=== PATIENT | female | born 1960 | race Native Hawaiian/Other Pacific Islander ===

== ENCOUNTER → 2018-11-13 13:32 | Outpatient (CLI) | payer OTHER, SELFPAY ==
--- NOTE | 2018-11-13 13:38 | DI.CT.S_ITS ---
PROCEDURE: CT ABDOMEN PELVIS W CON INDICATIONS: L LOWER QUADRANT PAIN TECHNIQUE: After the administration of oral and intravenous contrast, 5 mm thick sections acquired from the diaphragms to the symphysis. 5 mm thick coronal and sagittal reformats were performed. For radiation dose reduction, the following was used: automated exposure control, adjustment of mA and/or kV according to patient size. COMPARISON: None. FINDINGS: Image quality: Excellent. ABDOMEN: Lung bases: Lung bases are clear. Heart size is normal. Solid organs: Liver is normal in size and enhancement. Gallbladder is within normal limits. Biliary system is non-dilated. Pancreas enhances normally. Spleen is normal in size and enhancement. No adrenal nodules. Kidneys are normal in size and enhancement, without hydronephrosis. Left lower pole renal cyst is seen. Peritoneum and bowel: Small hiatal hernia is seen. There is no evidence of bowel obstruction. Significant circumferential wall thickening involving gastric pylorus and proximal first and second portion of duodenum is noted suggestive of gastroenteritis. Circumferential mass cannot be entirely excluded. GI correlation and followup is recommended. No other small bowel or colon wall thickening. No free fluid or free air. Nodes and vessels: No retroperitoneal or mesenteric adenopathy. Aorta and inferior vena cava are normal in caliber. Miscellaneous: No ventral hernias. PELVIS: Genitourinary: Bladder wall thickness is normal. Miscellaneous: No inguinal hernias or adenopathy. Bones: No suspicious bony lesions. No vertebral body compression fractures. IMPRESSION: 1. Circumferential wall thickening involving gastric pylorus and proximal duodenum suggestive of gastroduodenitis. Underlying circumferential gastric wall mass cannot be entirely excluded, GI correlation and followup is recommended. No bowel obstruction. No free fluid or free air. No CT evidence of acute appendicitis or diverticulitis. 2. No renal stone or hydronephrosis. Dictated by: Franco Tolentino M.D. on 11/13/2018 at 14:50 Approved by: Franco Tolentino M.D. on 11/13/2018 at 14:57
[2018-11-13 14:12] LABS: BUN Creatinine Ratio 15.7 (6-22); Blood Urea Nitrogen 11 mg/dL (7-17); Estimated Glomerular Filt Rate > 60.0 mL/min (>60)
== END ==
PROVIDERS: Family Provider Internal Medicine; PCP Internal Medicine; Visit Provider Internal Medicine
DX: Z01.818 Encounter for other preprocedural examination (principal); R10.32 Left lower quadrant pain
CPT/HCPCS: 36415; 74177; 82565; 84520; Q9967

== ENCOUNTER → 2019-03-30 14:05 | Oncology outpatient (ONC) | payer OTHER, SELFPAY ==
[2019-03-30 14:28] VITALS: BP 119/75; PULSE 76; RESP 16; TEMP 36.7
[2019-03-30 14:30] LABS: BUN Creatinine Ratio 18.6 (6-22); Blood Urea Nitrogen 13 mg/dL (7-17); Calcium 9.4 mg/dL (8.4-10.2); Carbon Dioxide 27 mmol/L (22-32); Chloride 105 mmol/L (98-107); Cholesterol 215 mg/dL (140-199); Estimated Glomerular Filt Rate > 60.0 mL/min (>60); Glucose 100 mg/dL (80-110); HDL Cholesterol 81 mg/dL (40-60); HEMOLYSIS < 15 (0-50); LDL Cholesterol Calculated 119 mg/dL (<100); Sodium 141 mmol/L (137-145); Triglycerides 77 mg/dL (35-150)
[2019-03-30 14:48] LABS: Vitamin D 25 Hydroxy (D3) 26.6 ng/mL (30.0-100.0)
[2019-03-30] MEDS: ZOLEDRONIC ACID 5 MG in SODIUM CHLORIDE 0.9% 100 ML 318.75 ML IV (15:08)
== END ==
PROVIDERS: PCP Internal Medicine; Visit Provider Internal Medicine
DX: M81.0 Age-related osteoporosis without current pathological fracture (principal)
CPT/HCPCS: 36415; 80048; 80061; 82306; 96365; J3489

== ENCOUNTER → 2019-10-27 13:50 | Outpatient (CLI) | payer OTHER, SELFPAY ==
--- NOTE | 2019-10-27 | DI.RAD.S_ITS ---
PROCEDURE: XR THORACIC SPINE 1V INDICATIONS: upper back pain TECHNIQUE: 3 views of the thoracic spine were acquired. COMPARISON: None. FINDINGS: Bones: No fractures or dislocations. No suspicious bony lesions. Multilevel degenerative endplate sclerosis and spurring. Diffuse facet arthropathy. Mild lateral curvature of the spine. Cervical spondylosis also noted Soft tissues: No paravertebral stripe thickening. IMPRESSION: Diffuse mild spondylitic changes. No fracture Dictated by: Valentín Nichols M.D. on 10/27/2019 at 14:34 Approved by: Valentín Nichols M.D. on 10/27/2019 at 14:37
== END ==
PROVIDERS: PCP Internal Medicine; Visit Provider Internal Medicine
DX: M54.6 Pain in thoracic spine (principal); M47.814 Spondylosis without myelopathy or radiculopathy, thoracic region; M47.812 Spondylosis without myelopathy or radiculopathy, cervical region
CPT/HCPCS: 72072

== ENCOUNTER → 2020-03-07 16:49 | Outpatient (CLI) | payer OTHER, SELFPAY ==
--- NOTE | 2020-03-07 16:55 | DI.RAD.S_ITS ---
PROCEDURE: XR KNEE LT 3V INDICATIONS: LEFT KNEE PAIN TECHNIQUE: 3 views of the knee were acquired. COMPARISON: [facility], CR, KNEE 3V LEFT, 01/23/2018, 14:21. FINDINGS: Bones: No fractures or dislocations. No suspicious bony lesions. Soft tissues: No joint effusion. No suspicious soft tissue calcifications. IMPRESSION: Normal for age, source of current left knee pain symptoms is not seen. Dictated by: Eliel Snyder M.D. on 03/08/2020 at 8:55 Approved by: Eliel Snyder M.D. on 03/08/2020 at 8:56
== END ==
PROVIDERS: PCP Internal Medicine; Referring Provider Internal Medicine; Visit Provider Internal Medicine
DX: M25.562 Pain in left knee (principal)
CPT/HCPCS: 73562

== ENCOUNTER → 2020-11-23 18:45 | Outpatient (ROUT) | payer OTHER, SELFPAY ==
[2020-11-23 19:00] LABS: Add Manual Diff / Slide Review NO; Basophils Absolute Auto 100 /uL (0-100); Basophils Percent Auto 0.9 % (0-2); Eosinophils Absolute Auto 200 /uL (0-450); Eosinophils Percent Auto 2.8 % (2-4); Hematocrit 35.2 % (36-46); Hemoglobin 11.9 g/dL (12.0-16.0); Lymphocytes Absolute Auto 2500 /uL (1100-4500); Lymphocytes Percent Auto 40.8 % (25-40); Mean Corpuscular HGB Conc 33.8 % (30-36); Mean Corpuscular Volume 91.5 fL (80-100); Monocytes Absolute Auto 500 /uL (0-900); Monocytes Percent Auto 7.9 % (3-14); Neutrophils Absolute Auto 3000 /uL (1500-7000); Neutrophils Percent Auto 47.6 % (50-75); Platelet Count 260 X10^3/uL (150-400); Red Blood Cell Count 3.85 X10^6/uL (4.0-5.2); Red Cell Distribution Width 12.3 % (11.6-14.8); White Blood Cell Count 6.2 X10^3/uL (4.5-11.0)
[2020-11-23 19:13] LABS: Alanine Aminotransferase 16 IU/L (<35); Albumin 4.3 g/dL (3.5-5.0); Albumin Globulin Ratio 1.4 (1.0-2.8); Alkaline Phosphatase 45 U/L (38-126); Aspartate Aminotransferase 26 IU/L (14-36); BUN Creatinine Ratio 18.8 (6-22); Blood Urea Nitrogen 15 mg/dL (7-17); Calcium 9.5 mg/dL (8.4-10.2); Carbon Dioxide 29 mmol/L (22-32); Chloride 104 mmol/L (98-107); Estimated Glomerular Filt Rate > 60.0 mL/min (>60); Glucose 111 mg/dL (80-110); HEMOLYSIS < 15 (0-50); Lipase 253 U/L (23-300); Potassium 3.9 mmol/L (3.4-5.1); Sodium 138 mmol/L (137-145); Total Protein 7.3 g/dL (6.3-8.2)
[2020-11-23 19:41] LABS: Bilirubin Total < 0.1 mg/dL (0.2-1.3)
== END ==
PROVIDERS: PCP Internal Medicine; Visit Provider Internal Medicine
DX: R10.10 Upper abdominal pain, unspecified (principal)
CPT/HCPCS: 80053; 83690; 85025

== ENCOUNTER → 2020-12-04 13:53 | Outpatient (CLI) | payer OTHER, SELFPAY ==
--- NOTE | 2020-12-04 | DI.CT.S_ITS ---
PROCEDURE: CT ABDOMEN W CON INDICATIONS: Upper abdominal pain, unspecified TECHNIQUE: After the administration of oral and intravenous contrast, 5 mm thick sections acquired from the diaphragms to the iliac crests. 5 mm thick coronal and sagittal reformats were acquired. For radiation dose reduction, the following was used: automated exposure control, adjustment of mA and/or kV according to patient size. COMPARISON: [facility], CT, CT ABDOMEN PELVIS W CON, 11/13/2018, 14:17. FINDINGS: Image quality: Excellent. Lung bases: Left lower lobe subpleural pulmonary nodule measuring 3 mm, (3/4), unchanged. Heart size is normal. Solid organs: Liver is normal in size. Subcentimeter hypodensities in the inferior right lobe of the liver is unchanged compared to 2019. These likely represent benign cyst. Gallbladder is unremarkable. Biliary system is non dilated. Pancreas enhances normally. Spleen is normal in size and enhancement. No adrenal nodules. Kidneys are normal in size, without hydronephrosis. Simple cyst in the inferior left kidney measuring 2.4 cm. Peritoneum and bowel: Small duodenal diverticulum. Contrast enhanced bowel loops appear normal in caliber. No free fluid or air. Nodes and vessels: No retroperitoneal or mesenteric adenopathy by size criteria. Aorta and inferior vena cava are normal in size. Moderate calcified atherosclerotic plaque. Bones: No suspicious bony lesions. No vertebral body compression fractures. Miscellaneous: No ventral hernias. IMPRESSION: Similar thickening of the gastric pylorus compared to 2019. Similar mild thickening of the distal stomach. Findings could be seen in gastroduodenitis No free fluid. Small duodenal diverticulum. No enlarged adenopathy. Dictated by: Tejinder Nelson M.D. on 12/04/2020 at 16:13 Approved by: Tejinder Nelson M.D. on 12/04/2020 at 16:22
== END ==
PROVIDERS: PCP Internal Medicine; Referring Provider Internal Medicine; Visit Provider Internal Medicine
DX: R10.10 Upper abdominal pain, unspecified (principal); K57.10 Diverticulosis of small intestine without perforation or abscess without bleeding; R91.1 Solitary pulmonary nodule; N28.1 Cyst of kidney, acquired
CPT/HCPCS: 74160; Q9967

== ENCOUNTER 2021-06-04 14:43 | Emergency (ER) | payer OTHER, SELFPAY ==
[2021-06-04 15:13] VITALS: BP 148/79; PULSE 74; RESP 12; TEMP 36.9; O2SAT 100; BMI 21.2
--- NOTE | 2021-06-04 18:53 | ED.EXTPRO ---
HPI - Extremity Problem General Chief complaint: Extremity Problem,Nontraumatic Stated complaint: pain in right thigh since Time Seen by Provider: 06/04/21 18:43 Source: patient Mode of arrival: Ambulatory History of Present Illness HPI Narrative: Patient is a 61-year-old female here for evaluation of a pain in her right thigh. She states that it has been there for the past several days. She denies any specific trauma. States that it does radiate below her knee and up into her hip. She feels like there is a lump on the inside of her right thigh. No skin changes. She can bend her knee without any problems and could also flex and extend her hip without any problems. She stated that she contacted her primary doctor who told her to go to the walk-in clinic for concerns of a blood clot who sent her here to the emergency department for further evaluation. Related Data Previous Rx's Medication Instructions Recorded cyclobenzaprine 10 mg tablet 10 mg PO TID PRN #12 tab 06/04/21 Allergies Allergy/AdvReac Type Severity Reaction Status Date / Time shellfish derived Allergy Hives Verified 06/04/21 15:18 Review of Systems Constitutional Constitutional: Denies fatigue Cardiovascular Comments: Denies chest pain Respiratory Comments: Denies shortness of breath Musculoskeletal Musculoskeletal: Reports as per HPI and Denies tingling Integumentary/Breasts Skin/Breast: Reports system reviewed and no additional complaints, except as documented Neurologic Neurologic: Denies tingling Endocrine Endocrine: Denies fatigue Hematologic/Lymphatic On Anticoagulants: No Patient History Social History Smoking Status: Never smoker Smoking Status: Never smoker Substance Use Type: does not use Exam Initial Vital Signs Initial Vital Signs: Vital Signs Temperature 98.4 F 06/04/21 15:13 Pulse Rate 74 06/04/21 15:13 Respiratory Rate 12 06/04/21 15:13 Blood Pressure 148/79 H 06/04/21 15:13 Pulse Oximetry 100 06/04/21 15:13 HENMT Head: normal to inspection and normocephalic Resp Effort & Inspection: normal respiratory effort Cardio Rate: regular rate Skin General: no rashes or lesions noted Neuro General: patient alert, patient awake and moves all extremities Extrem Other: Patient's right hip and right knee are unremarkable. She has tenderness to palpation on the anterior/medial aspect her right knee. It is fairly localized. There is no mass felt in the area. The area of discomfort is reproducible and appears to be the medial quadriceps muscle that is the source of her symptoms. Psych Appearance: grossly normal and well kempt Scores Wells' Criteria for DVT Active Cancer (Treatment within 6 months): No Bedridden recently >3 days or major surgery within 4 weeks: No Calf Swelling >3cm compared to other leg: No Collateral (nonvericose) superficial veins present: No Entire leg swollen: No Localized tenderness along the deep vein system: Yes Pitting edema, confined to symtomatic leg: No Paralysis, paresis, or recent plaster immobilization of ext: No Previously documented DVT: No Alternative dx to DVT as likely or more likely: Yes Wells' criteria for DVT: -1 Course Vital Signs Vital signs: Vital Signs - 8 hr 06/04/21 19:03 Pulse Rate 70 Respiratory Rate 14 Blood Pressure 174/77 H Pulse Oximetry 99 MDM - Extremity (Nontraumatic) MDM Narrative Medical decision making narrative: Low suspicion for DVT given her presentation today. Also I have low suspicion for cellulitis. Low suspicion for compartment syndrome. Also have low suspicion for fracture. I do suspect this is muscular in origin. She is low risk per Wells criteria. Feel that we can hold on any radiologic studies or lab work for now. She was given care instructions and return precautions. She has press understanding and agreement. Discharge Plan Departure Patient Disposition: Home Clinical Impression: Pain in right thigh Instructions: Muscle Strain Activity Restrictions/Additional Instructions: I recommend that you switch to Tylenol because the ibuprofen seems to be causing you abdominal pain. I have a very high suspicion that your issues today are muscular. A prescription for muscle relaxers was sent to [facility] for you to use as needed. These medicines can make you drowsy. Contact your primary doctor for follow-up. Return to the emergency department for any new or worsening symptoms Prescriptions: New cyclobenzaprine 10 mg tablet 10 mg PO TID PRN (Reason: muscle spasm) Qty: 12 RF: 0 Referrals: Yumiko Buckner MD [Primary Care Provider] -
[2021-06-04 19:03] VITALS: BP 174/77; PULSE 70; RESP 14; O2SAT 99
== END 2021-06-04 19:05 | disposition home or self-care (01) ==
PROVIDERS: Emergency Provider Emergency Medicine; PCP Internal Medicine
DX: M79.651 Pain in right thigh (principal)
CPT/HCPCS: 99281

== ENCOUNTER → 2021-10-25 15:18 | Outpatient (CLI) | payer OTHER, SELFPAY ==
--- NOTE | 2021-10-25 | DI.RAD.S_ITS ---
PROCEDURE: XR DEXA AXIAL SKELETON INDICATIONS: Age-related osteoporosis without current pathologi COMPARISON: None. FINDINGS: This blank DEXA report has been sent in error by the PACS system. The correct and complete report will be forthcoming in 1-2 days. Thank you for your patience and understanding. Dictated by: Claudia Adan MD, PhD on 10/25/2021 at 17:38 Approved by: Claudia Adan MD, PhD on 10/25/2021 at 17:38
== END ==
PROVIDERS: PCP Internal Medicine; Referring Provider Internal Medicine; Visit Provider Internal Medicine
DX: M85.852 Other specified disorders of bone density and structure, left thigh (principal); Z78.0 Asymptomatic menopausal state; Z87.891 Personal history of nicotine dependence; Z82.62 Family history of osteoporosis
CPT/HCPCS: 77080

== ENCOUNTER → 2023-10-15 14:05 | Outpatient (CLI) | payer OTHER, SELFPAY ==
--- NOTE | 2023-10-15 | DI.RAD.S_ITS ---
Bone Density Report Name: CHAPIN VILLATORO Age: 63 Sex: Female Ethnicity: Date of : 1960 Indication: osteopenia; monitoring treatment; Referring Provider: AFSHIN QUINTERO Study: Bone densitometry was performed. Exam Date: October 15, 2023 Accession number: [id number] Bone Density: Region BMD T-score Z-score Classification AP Spine(L1-L4) 0.838 -1.9 -0.1 Osteopenia Femoral Neck (Left) 0.630 -2.0 -0.4 Osteopenia Total Hip (Left) 0.780 -1.3 -0.1 Osteopenia Femoral Neck (Right) 0.649 -1.8 -0.3 Osteopenia Total Hip (Right) 0.779 -1.3 -0.1 Osteopenia Total Hip Mean 0.779 -1.3 -0.1 Osteopenia World Health Organization criteria for BMD impression classify patients as: Normal (T-score at or above -1.0), Osteopenia (T-score between -1.0 and -2.5), or Osteoporosis (T-score at or below -2.5). 10-year Fracture Risk: FRAX not reported because: Treated for osteoporosis Previous Exams: -- Region Exam Age BMD T-score BMD Change BMD Change Date g/cm2 vs Baseline vs Previous -- AP Spine (L1-L4) 10/15/2023 63 0.838 -1.9 0.085 (11.3%)# 0.035 (4.4%)# 10/25/2021 61 0.803 -2.2 0.050 (6.7%)* 0.034 (4.5%)* 11/14/2017 57 0.769 -2.5 0.016 (2.1%) 0.016 (2.1%) 02/01/2015 54 0.753 -2.7 Total Hip(Left) 10/15/2023 63 0.780 -1.3 0.030 (4.0%)# 0.010 (1.2%)# 10/25/2021 61 0.770 -1.4 0.020 (2.7%) 0.036 (4.9%)* 11/14/2017 57 0.734 -1.7 -0.016 (-2.1%) -0.016 (-2.1%) 02/01/2015 54 0.750 -1.6 Total Hip(Right) 10/15/2023 63 0.779 -1.3 0.038 (5.1%)# 0.001 (0.1%)# 10/25/2021 61 0.778 -1.3 0.037 (5.0%)* 0.017 (2.2%) 11/14/2017 57 0.761 -1.5 0.020 (2.8%) 0.020 (2.8%) 02/01/2015 54 0.741 -1.6 -- *Denotes significance at 95% confidence level, LSC for AP Spine = 0.022 g/cm2, LSC for Total Hip = 0.027 g/cm2 # Denotes dissimilar scan types or analysis methods Impression: The patient has low bone mass, based on the Left Femoral Neck T-score. No significant bone loss was observed. Discussion: PATIENT UNDER TREATMENT WITH NO SIGNIFICANT BMD LOSS SINCE LAST EXAM. In an untreated patient, BMD typically declines with age. A lack of decline or gain is usually a sign that treatment is efficacious and fracture risk is reduced. It is important to ask patients whether they are taking their medications and to encourage continued and appropriate compliance with their osteoporosis therapies to reduce fracture risk. It is also important to review their risk factors and encourage appropriate calcium and vitamin D intakes, exercise, fall prevention and other lifestyle measures. Follow-Up: Consider a repeat BMD and Vertebral Fracture Assessment (VFA) exam in 2 years or sooner if medically necessary, to reassess this patient's status. Reported by: SHERICE GORDON M.D. on 10/15/2023 2:20:00 PM.
== END ==
PROVIDERS: PCP Internal Medicine; Referring Provider Internal Medicine; Visit Provider Internal Medicine
DX: M81.0 Age-related osteoporosis without current pathological fracture (principal); Z78.0 Asymptomatic menopausal state
CPT/HCPCS: 77080